=== PATIENT | female | born 1980 | race Caucasian/White ===

== ENCOUNTER 2019-01-12 07:16 | Observation (INO) | payer OTHER ==
--- NOTE | 2019-01-11 21:30 | PREOP HP ---
DATE OF SERVICE: 01/12/2019 CHIEF COMPLAINT AND HISTORY OF PRESENT ILLNESS: This patient is a 38-year-old white female who is a 3, para 3. She has had a previous hysterectomy for uterine bleeding and she came into the Emergency Room because of acute pelvic pain and she was seen by the ER physician and she did have a CT scan, which shows a mass in the pelvic area and she is complaining of more pain on the right side and was seen in the office on 01/09/2019 for the same problem and she has had pelvic sonogram, which confirms ovarian cyst, a bigger cyst on the right side with multiple septations and a smaller cyst in the left ovary. ALLERGIES: SHE IS ALLERGIC TO CLINDAMYCIN. PAST MEDICAL HISTORY: Reveals she has had two C-sections, hysterectomy, also a bladder surgery, a gastric bypass in 2018 and she has lost about 100 pounds at this time. FAMILY HISTORY: Nothing of importance. REVIEW OF SYSTEMS: Essentially negative. PHYSICAL EXAMINATION: VITAL SIGNS: Reveals she weighs about 152 pounds, blood pressure of 110/70. HEAD, EYES, NOSE, THROAT: Within normal limits. LUNGS: Clear. HEART: Sounds regular, sinus rhythm. ABDOMEN: Soft. Scar seen due to the previous surgeries. Tenderness in the right adnexal area. PELVIC: Shows external genitalia being normal. Vaginal vault is well supported and no adnexal mass palpable on the left side, but the right side, there is marked tenderness and also palpable mass. Pap smear done in the office. EXTREMITIES: No edema of feet. IMPRESSION: Acute pelvic pain, pelvic mass, possible dermoid cyst of the ovary on the right side. PLAN: Laparotomy, possible bilateral salpingo-oophorectomy. The details of the surgery, the risks and complications such as hemorrhage, infection has been explained to her. The patient is willing for the operation at the present time. KANCHAN GRACE MD DR: KANU/cielo JOB#: [id number] / [id number]
[2019-01-12] VITALS (8 sets, daily range): BP systolic 123–137; BP diastolic 67–94
[~2019-01-12] VITALS: Ht 165.1 cm; Wt 74.6 kg
[~2019-01-12 07:16] MED LIST: DEXAMETHASONE SOD PHOS 20 MG/5 ML VIAL. ONE; HYDROmorphone 2 MG/ML VIAL IV PRN; IV RINGERS,LACTATED 1000ML 1,000 ML IV SCH; LIDOCAINE 1% PF 2 ML VIAL. ID PRN; LIDOCAINE 2% PF 5 ML VIAL. ONE; MORPHINE SULFATE 4 MG/ML VIAL. IV PRN; ONDANSETRON PF 4 MG/2 ML VIAL. IV PRN; ONDANSETRON PF 4 MG/2 ML VIAL. ONE; PROCHLORPERAZINE 10 MG/2 ML VIAL. IV PRN; PROPOFOL 20 ML IV ONE; ROCURONIUM 50 MG/5 ML VIAL. ONE; fentaNYL PF VIAL 100 MCG/2 ML VIAL IV PRN
[2019-01-12 08:05] LABS: BASO % 0 % (0-3); EOS # 0.2 x10^3/uL (0.0-0.7); EOS % 4 % (0-3); HEMATOCRIT 42.6 % (36.0-47.0); HEMOGLOBIN 14.3 g/dL (12.0-15.5); LYMPH # 1.5 x10^3/uL (1.0-4.8); LYMPH % 26 % (24-48); MEAN CORPUSCULAR HEMOGLOBIN 31 pg (25-35); MEAN CORPUSCULAR HGB CONC 34 g/dL (31-37); MEAN CORPUSCULAR VOLUME 93 fL (79-100); MONO # 0.4 x10^3/uL (0.0-1.1); MONO % 7 % (0-9); NEUT # 3.5 x10^3uL (1.8-7.7); NEUT % 63 % (31-73); PLATELET COUNT 283 x10^3/uL (140-400); RED BLOOD COUNT 4.57 x10^6/uL (3.50-5.40); RED CELL DISTRIBUTION WIDTH 13.2 % (11.5-14.5); WHITE BLOOD COUNT 5.6 x10^3/uL (4.0-11.0)
[2019-01-12] MEDS ORDERED: LEVO50TA PO (08:06)
[2019-01-12] MEDS ORDERED: GABA600T PO (08:06)
[2019-01-12] MEDS ORDERED: MIDAZOLAM HCL/PF 2 MG/2 ML VIAL. ONE (08:35)
[2019-01-12] MEDS ORDERED: fentaNYL PF VIAL 100 MCG/2 ML VIAL ONE ×4 (08:35→10:40)
[2019-01-12] MEDS ORDERED: GLYCOPYRROLATE 1 MG/5 ML VIAL. ONE (09:33)
[2019-01-12] MEDS ORDERED: NEOSTIGMINE 10 MG/10 ML VIAL. ONE (09:33)
[2019-01-12] MEDS ORDERED: KETOROLAC 30 MG/ML INJ FOR OR. INJ ONE (09:34)
[2019-01-12] MEDS ORDERED: DESFLURANE 61 TO 120 MINUTES IH ONE (09:46)
--- NOTE | 2019-01-12 09:54 | PDOC ---
GENERAL General: 38 yrs old W/F having acute abdominal pain and Pelvic pain She has ovarian Cyst and has lot of Right Lower quadrant Pain Scheduled for Laparotomy and Possible Bilateral Salpingoophorectomy. VITAL SIGNS Vital Signs: Vital Signs Date Time Temp Pulse Resp B/P (MAP) Pulse Ox O2 Delivery O2 Flow Rate FiO2 01/12/19 07:41 98.6 84 16 135/91 98 Room Air 98.6 ALLERGIES Allergies: Allergies Coded Allergies Type Severity Reaction Last Updated Verified clindamycin Allergy Intermediate 01/12/19 Yes latex Allergy Intermediate Swelling 01/12/19 Yes apple Allergy Unknown Anaphylaxis 01/12/19 Yes MEDS Medications: Current Medications Medications (Trade) Dose Ordered Sig/Taz Start Time Stop Time Status Last Admin Dose Admin Cefazolin Sodium/ Dextrose 50 ml @ 100 mls/hr 1X PREOP PRN 01/12/19 06:00 01/13/19 05:59 01/12/19 08:42 100 MLS/HR Desflurane (Suprane) 60 ml STK-MED ONCE 01/12/19 09:46 01/12/19 09:47 DC Dexamethasone Sodium Phosphate (Decadron) 20 mg STK-MED ONCE 01/12/19 06:40 01/12/19 06:41 DC Fentanyl Citrate (Fentanyl 2ml Vial) 100 mcg STK-MED ONCE 01/12/19 09:10 01/12/19 09:11 DC Glycopyrrolate (Robinul) 1 mg STK-MED ONCE 01/12/19 09:33 01/12/19 09:34 DC Hydromorphone HCl (Dilaudid) 0.5 mg PRN Q10MIN PRN 01/12/19 07:00 01/13/19 06:59 Ketorolac Tromethamine (Toradol For Or Only) 30 mg STK-MED ONCE 01/12/19 09:34 01/12/19 09:35 DC Lidocaine HCl (Lidocaine Pf 2% Vial) 5 ml STK-MED ONCE 01/12/19 06:40 01/12/19 06:41 DC Lidocaine HCl (Xylocaine-Mpf 1% 2ml Vial) 2 ml PRN 1X PRN 01/12/19 07:00 01/13/19 06:59 Midazolam HCl (Versed) 2 mg STK-MED ONCE 01/12/19 08:35 01/12/19 08:36 DC Morphine Sulfate (Morphine Sulfate) 1 mg PRN Q10MIN PRN 01/12/19 07:00 01/13/19 06:59 Neostigmine Methylsulfate (Bloxiverz) 10 mg STK-MED ONCE 01/12/19 09:33 01/12/19 09:34 DC Ondansetron HCl (Zofran) 4 mg STK-MED ONCE 01/12/19 06:40 01/12/19 06:41 DC Prochlorperazine Edisylate (Compazine) 5 mg PACU PRN PRN 01/12/19 07:00 01/13/19 06:59 Propofol 20 ml @ As Directed STK-MED ONCE 01/12/19 06:40 01/12/19 06:41 DC Ringer's Solution 1,000 ml @ 30 mls/hr Q24H 01/12/19 07:00 01/12/19 18:59 01/12/19 08:28 30 MLS/HR Rocuronium [place] (Zemuron) 50 mg STK-MED ONCE 01/12/19 06:40 01/12/19 06:41 DC LAB Lab: Laboratory Tests Test 01/12/19 07:55 White Blood Count 5.6 x10^3/uL (4.0-11.0) Red Blood Count 4.57 x10^6/uL (3.50-5.40) Hemoglobin 14.3 g/dL (12.0-15.5) Hematocrit 42.6 % (36.0-47.0) Mean Corpuscular Volume 93 fL (79-100) Mean Corpuscular Hemoglobin 31 pg (25-35) Mean Corpuscular Hemoglobin Concent 34 g/dL (31-37) Red Cell Distribution Width 13.2 % (11.5-14.5) Platelet Count 283 x10^3/uL (140-400) Neutrophils (%) (Auto) 63 % (31-73) Lymphocytes (%) (Auto) 26 % (24-48) Monocytes (%) (Auto) 7 % (0-9) Eosinophils (%) (Auto) 4 % (0-3) Basophils (%) (Auto) 0 % (0-3) Neutrophils # (Auto) 3.5 x10^3uL (1.8-7.7) Lymphocytes # (Auto) 1.5 x10^3/uL (1.0-4.8) Monocytes # (Auto) 0.4 x10^3/uL (0.0-1.1) Eosinophils # (Auto) 0.2 x10^3/uL (0.0-0.7) Basophils # (Auto) 0.0 x10^3/uL (0.0-0.2) ASSESSMENT & PLAN A&P Under GA Laparotomy and Bilateral Salpingoophorectomy done. EBL 50cc. Also Lysis of Adhesions done. KANCHAN GRACE MD Jan 12, 2019 09:54
[2019-01-12] MEDS ORDERED: ONDANSETRON PF 4 MG/2 ML VIAL. IV PRN ×3 (10:00→11:45)
[2019-01-12] MEDS ORDERED: IBUPROFEN 400 MG TABLET. PO PRN (10:00)
[2019-01-12] MEDS ORDERED: MORPHINE SULFATE 4 MG/ML VIAL. ONE (10:12)
[2019-01-12] MEDS ORDERED: PROCHLORPERAZINE 10 MG/2 ML VIAL. ONE (10:14)
[2019-01-12] MEDS: fentaNYL PF VIAL 100 MCG/2 ML VIAL IV PRN ×3 (10:18→10:42)
--- NOTE | 2019-01-12 10:46 | OP ---
DATE OF SURGERY: PREOPERATIVE DIAGNOSIS: Pelvic pain, ovarian cyst, pelvic adhesions. POSTOPERATIVE DIAGNOSIS: Pelvic pain, ovarian cyst, pelvic adhesions. OPERATION PERFORMED: Laparotomy, lysis of adhesions, bilateral salpingo-oophorectomy. DESCRIPTION OF PROCEDURE: The patient was taken to the operating room. Under general anesthesia, she was placed in the dorsal supine position. Burch catheter introduced into bladder for continuous bladder drainage. Lower abdomen is prepped and draped in the usual manner. Pfannenstiel incision is made, abdomen opened in layers. There were multiple layers of the omentum attached to the abdominal wall and these were released and also the omental adhesions in the pelvis is released and visualization of the right adnexa reveals a large ovarian cyst deep into the pelvic area and this was lifted out of the pelvis. Infundibulopelvic ligament is doubly ligated and the right side tube along with the large ovarian cyst is removed and subjected for pathological examination. The pedicle was doubly ligated with 0 chromic catgut sutures and after this lysis of adhesions done on the left side, again left ovary had a small cyst. The left tube and ovary was lifted out of the pelvic cavity and the infundibulopelvic ligament is ligated with Ese clamps on the left side and the left tube and ovary is removed and subjected for pathological examination. The pedicle was doubly ligated with 0 chromic catgut sutures and after removal of both the tubes and ovaries, there was no active bleeding and the abdomen, closed in layers using continuous 0 chromic catgut sutures for the peritoneum, the muscle, the fascia, 3-0 plain continuous sutures applied for subcutaneous tissue and 3-0 Vicryl subcutaneous sutures were placed, a pressure dressing was given. The patient was sent to the recovery room in good condition. No complications encountered at the time of the procedure. ESTIMATED BLOOD LOSS: About 50 mL. POSTOPERATIVE CONDITION: Stable. KANCHAN GRACE MD DR: KANU/cielo JOB#: [id number] / [id number]
[2019-01-12] MEDS ORDERED: MORPHINE SULFATE 4 MG/ML VIAL. IV PRN (11:45)
[2019-01-12] MEDS ORDERED: oxyCODONE/APAP 5/325 1 TAB TABLET PO PRN (11:45)
[2019-01-12] MEDS ORDERED: KETOROLAC 30 MG/ML VIAL. IV PRN ×2 (14:15)
[2019-01-12] MEDS: oxyCODONE/APAP 5/325 1 TAB TABLET PO PRN (18:00)
[2019-01-13 05:09] VITALS: BP 136/93
[2019-01-13] MEDS: oxyCODONE/APAP 5/325 1 TAB TABLET PO PRN ×2 (05:53→09:37)
--- NOTE | 2019-01-13 09:30 | NUR ---
home instructions gone over with pt and signed has no questions at this time
--- NOTE | 2019-01-13 09:32 | PDOC ---
GENERAL General: Doing ok No fever. VITAL SIGNS Vital Signs: Vital Signs Date Time Temp Pulse Resp B/P (MAP) Pulse Ox O2 Delivery O2 Flow Rate FiO2 01/13/19 06:55 18 Room Air 01/13/19 05:53 96 01/13/19 05:09 97.7 70 136/93 (107) 97.7 70 01/12/19 10:55 2 I & O I & O Intake and Output 01/13/19 07:00 Intake Total 2900 ml Output Total 1350 ml Balance 1550 ml Intake Oral 1650 ml IV Total 1250 ml Output Urine Total 1300 ml Estimated Blood Loss 50 ml # Voids 2 ALLERGIES Allergies: Allergies Coded Allergies Type Severity Reaction Last Updated Verified apple Allergy Severe Anaphylaxis 01/13/19 Yes clindamycin Allergy Intermediate 01/12/19 Yes latex Allergy Intermediate Swelling 01/12/19 Yes MEDS Medications: Current Medications Medications (Trade) Dose Ordered Sig/Taz Start Time Stop Time Status Last Admin Dose Admin Cefazolin Sodium/ Dextrose 50 ml @ 100 mls/hr 1X PREOP PRN 01/12/19 06:00 01/12/19 11:31 DC 01/12/19 08:42 100 MLS/HR Desflurane (Suprane) 60 ml STK-MED ONCE 01/12/19 09:46 01/12/19 11:34 DC Dexamethasone Sodium Phosphate (Decadron) 20 mg STK-MED ONCE 01/12/19 06:40 01/12/19 11:34 DC Fentanyl Citrate (Fentanyl 2ml Vial) 100 mcg STK-MED ONCE 01/12/19 10:40 01/12/19 11:34 DC Glycopyrrolate (Robinul) 1 mg STK-MED ONCE 01/12/19 09:33 01/12/19 11:31 DC Hydromorphone HCl (Dilaudid) 0.5 mg PRN Q10MIN PRN 01/12/19 07:00 01/12/19 11:32 DC Ibuprofen (Motrin) 400 mg PRN Q6HRS PRN 01/12/19 10:00 Ketorolac Tromethamine (Toradol 30mg Vial) 30 mg PRN Q6HRS PRN 01/12/19 14:15 01/17/19 14:14 Ketorolac Tromethamine (Toradol For Or Only) 30 mg STK-MED ONCE 01/12/19 09:34 01/12/19 11:31 DC Lidocaine HCl (Lidocaine Pf 2% Vial) 5 ml STK-MED ONCE 01/12/19 06:40 01/12/19 11:31 DC Lidocaine HCl (Xylocaine-Mpf 1% 2ml Vial) 2 ml PRN 1X PRN 01/12/19 07:00 01/12/19 11:32 DC Midazolam HCl (Versed) 2 mg STK-MED ONCE 01/12/19 08:35 01/12/19 11:31 DC Morphine Sulfate (Morphine Sulfate) 2 mg PRN Q2HR PRN 01/12/19 11:45 01/12/19 12:00 2 MG Neostigmine Methylsulfate (Bloxiverz) 10 mg STK-MED ONCE 01/12/19 09:33 01/12/19 11:31 DC Ondansetron HCl (Zofran) 4 mg PRN Q6HRS PRN 01/12/19 11:45 01/12/19 11:45 DC Oxycodone/ Acetaminophen (Percocet 5/325) 2 tab PRN Q4HRS PRN 01/12/19 11:45 01/13/19 05:53 2 TAB Prochlorperazine Edisylate (Compazine) 10 mg STK-MED ONCE 01/12/19 10:14 01/12/19 11:31 DC Propofol 20 ml @ As Directed STK-MED ONCE 01/12/19 06:40 01/12/19 11:34 DC Ringer's Solution 1,000 ml @ 30 mls/hr Q24H 01/12/19 07:00 01/12/19 18:59 DC 01/12/19 08:28 30 MLS/HR Rocuronium [place] (Zemuron) 50 mg STK-MED ONCE 01/12/19 06:40 01/12/19 11:31 DC LAB Lab: Laboratory Tests Test 01/12/19 10:38 Glucose (Fingerstick) 111 mg/dL (70-99) ASSESSMENT & PLAN A&P Abdomen soft. Incision healing. Pt going home today. Will see her in 2 weeks in office.. KANCHAN GRACE MD Jan 13, 2019 09:32
[2019-01-13 10:08] VITALS: BP 136/93
--- NOTE | 2019-01-16 13:08 | PATHOLOGY ---
[facility] Accession Number: [id number] . 01 Material submitted: . PART A: RIGHT FALLOPIAN TUBE AND OVARY WITH CYST PART B: LEFT FALLOPIAN TUBE AND OVARY . 01 Clinical history: . Pelvic mass/pelvic pain . 02 Diagnosis: A. Fallopian tube and ovary, right salpingo-oophorectomy: - Follicular cyst with hemorrhage and regressive changes. - Cystic follicles of ovary. - Extensive recent hemorrhage of ovarian stroma. - Ovarian capsular and tubal serosal adhesions. . B. Fallopian tube and ovary, left salpingo-oophorectomy: - Cystic follicles of ovary. [facility]/01/16/2019 . 02 Comment: There is no atypia or evidence of malignancy. (JPM:[facility] 01/16/2019) . 02 Electronically signed: . Lucio Sawant MD, Pathologist NPI- [id number] . 01 Gross description: . A. The specimen is received in formalin, labeled "Kiera Boo, right fallopian tube and ovary with cyst". Received is a 47 g adnexal specimen consisting of a fimbriated fallopian tube measuring 5.7 cm in length by up to 0.6 cm in diameter attached to a 5.3 x 4.8 x 2.0 cm blue-rene ovary. Sectioning through the fallopian tube reveals a pinpoint to patent lumen. Sectioning through the ovary reveals multiple cystic structures ranging in size from 0.3 to 2.9 cm filled with blood-tinged fluid. Remaining cut surfaces are hemorrhagic in appearance and normal ovarian stroma is identified. The specimen is submitted representatively in cassettes A1 through A4. . B. The specimen is received in formalin, labeled "Kiera Rajeev, left fallopian tube and ovary". Received is an 11 g adnexal specimen consisting of a fimbriated fallopian tube measuring 2.5 cm in length by 0.6 m in diameter attached to a 3.3 x 2.4 x 2.3 cm ovary. Sectioning through the fallopian tube reveals a patent lumen. Sectioning through the ovary reveals multiple cystic structures ranging in size from 0.7 to 1.6 cm filled with clear serous fluid. Remaining cut surfaces display pale hawkins, normal ovarian stroma. The specimen is submitted representatively in cassettes B1 and B2. ([facility]; 01/13/2019) QAC/QAC . 02 Pathologist provided ICD-10: N83.01, R10.2 . 02 CPT . 890164, [id number] Specimen Comment: A courtesy copy of this report has been sent to Specimen Comment: [phone], . Specimen Comment: Report sent to / DR PLATA Specimen Comment: A duplicate report has been generated due to demographic updates. Performed at: 01 [facility] [address] [facility] [address], [place] [id number] MD Burton Murrell MD Phone: [phone] Performed at: 02 [facility] [address] [place], [place] [id number] MD Lucio Sawant MD Phone: [phone]
== END 2019-01-13 10:15 | disposition home or self-care (01) ==
LOC: SURG 07:16 → 3 NORTH 07:17
PROVIDERS: ADMIT Obstetrics & Gynecology; ATTEND Obstetrics & Gynecology
PROC: 0UT20ZZ Resection of Bilateral Ovaries, Open Approach (ICD-10-PCS; 2019-01-12)
PROC: 0UT70ZZ Resection of Bilateral Fallopian Tubes, Open Approach (ICD-10-PCS; principal; 2019-01-12 09:00)
DX: N73.6 Female pelvic peritoneal adhesions (postinfective) (principal); N83.201 Unspecified ovarian cyst, right side; Z90.710 Acquired absence of both cervix and uterus; Z98.84 Bariatric surgery status; R19.00 Intra-abdominal and pelvic swelling, mass and lump, unspecified site; Z91.040 Latex allergy status; Z88.8 Allergy status to other drugs, medicaments and biological substances; Z91.018 Allergy to other foods
CPT/HCPCS: 36415; 58720; 82962; 85025; 86850; 86900; 86901; 88305; 96374; 96375; A7015; G0378; G0379; J0696; J0780; J1100; J1885; J2001; J2250; J2270; J2405; J2704; J2710; J3010; J3490; J7120; A4461